=== PATIENT | female | born 1990 | race African-American/Black ===

== ENCOUNTER 2017-06-17 16:54 | Day surgery (SDC) | payer MEDICAID, OTHER ==
[2017-06-17 17:48] VITALS: BMI 24.0
[2017-06-17 19:19] LABS: Bilirubin Negative (Negative); Blood, Urine Negative (Negative); Glucose, Urine (Dipstick) Negative (Negative); Ketone, Urine 15 mg/dL (Negative); Nitrite Negative (Negative); Protein, Urine (Dipstick) Negative (Neg-Trace); Urobilinogen 0.2 mg/dL (0.2-1.0)
[2017-06-17 19:21] LABS: Bacteria/HPF None Seen HPF (None Seen); Hyaline Casts/LPF 0-3 HYALINE CAST LPF (0-3 Hyaline); RBC/HPF None Seen HPF (0-3); Squamous Epithelial 0-3 HPF (0-3); WBC/HPF 0-3 HPF (0-3)
--- NOTE | 2017-06-17 19:23 | PDOC.LDHP ---
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 Describes the amount as specks and denies clots. She denies abdominal pain, intercourse, and painful contractions. Denies dysuria, urinary frequency, changes in urine color, fever, chills, cp, sob, abdominal pain. Of note pt was also late to care. Current gestational age (weeks): 35 Due date: 07/20/17 Grav: 1 Para: 0 OB History Details: HPV Current complications: none Abnormal US findings: No (placenta anterofundal, no evidence of previa) Current medications: pre-chantel vitamins Previous surgical history: none - Physical Exam Vital signs reviewed and normal: yes General: NAD, resting Heart: RRR Lungs: nonlabored breathing Abdomen: gravid Extremeties: trace edema FHT: category 1, variability present [place] contractions every: absent - OB Labs Additional Labs: Late to care, no existing labs - Assessment HPV anogenital Vaginal bleeding in - Plan -: bleeding possibly 2/2 friable anogenital warts, no evidence of active bleeding and no previa evident on us will check vp3 and ua cat 1 strip, 140s bl, + accels, no decels VSS, no contractions on monitor no evidence of labor will obs and await urine and vp3 studies <Ben Sevilla - Last Filed: 06/17/17 19:19> <Ira Perez - Last Filed: 06/17/17 23:15> Allergies/Adverse Reactions: Allergies Allergy/AdvReac Type Severity Reaction Status Date / Time No Known Allergies Allergy Unverified 06/17/17 17:40 Attending Addendum - Attending Addendum I personally evaluated the patient and discussed the management with Dr. Sevilla on 06/17/17. I agree with the History, Examination, Assessment and Plan documented above with any addition or exceptions noted below. Patient is a 26 you at 35 wks with hx of significant genital warts that will require a primary LTCS at 39 wks. She presents with a small amount of vaginal bleeding after urinating. UA was unremarkable for a clean catch, is being sent for urine culture. VP3 shows BV and vaginal candidiasis, will discharge home with prescription for both. <Ira Perez - Last Filed: 06/17/17 23:15>
== END 2017-06-17 20:30 | disposition home or self-care (01) ==
LOC: ERS 16:54 → L&D/OP 16:54
PROVIDERS: ATTEND Student in an Organized Health Care Education/Training Program
DX: O26.853 Spotting complicating pregnancy, third trimester (principal); O98.313 Other infections with a predominantly sexual mode of transmission complicating pregnancy, third trimester; Z3A.35 35 weeks gestation of pregnancy; Z79.899 Other long term (current) drug therapy
CPT/HCPCS: 76815; 81003; 81015; 87480; 87510; 87660; A4353

== ENCOUNTER 2017-07-22 06:15 | Inpatient (IN) | payer OTHER ==
[2017-07-22] MEDS ORDERED: CEFAZOLIN/Water 2 GM/20 ML SYRINGE SLOW IVP SCH (06:21)
[2017-07-22] MEDS ORDERED: Bicitra 30 ML UDCUP PO SCH (06:21)
[2017-07-22] MEDS ORDERED: Promethazine HCl 25 MG/ML VIAL IM PRN ×2 (06:21→07:24)
[2017-07-22] MEDS ORDERED: Ondansetron HCl/PF 4 MG/2 ML Vial IVP PRN ×2 (06:21→07:24)
[2017-07-22 06:40] VITALS: BMI 25.0
[2017-07-22] MEDS ORDERED: Fentanyl 100 MCG/2 ML VIAL ONE (06:40)
[2017-07-22] MEDS ORDERED: Famotidine/PF 20 mg/2ml Vial ONE (06:41)
[2017-07-22] MEDS ORDERED: Morphine PF 1 MG/ML SYR ONE (06:41)
[2017-07-22 06:48] LABS: Hematocrit 41.2 % (36.0-47.0); Mean Platelet Volume 6.3 fL (7.4-10.4); Red Blood Cell (RBC) Count 4.14 mill/uL (4.20-5.40); White Blood Cell (WBC) Count 13.9 thou/uL (4.8-10.8)
[2017-07-22] MEDS ORDERED: ePHEDrine/0.9% NaCl/PF SYRINGE 50 mg/10 ml ONE ×2 (06:48→15:20)
[2017-07-22] MEDS ORDERED: PHENYLEPHRINE-NS 100 MCG/ML 10 ML SYRINGE ONE ×2 (06:48→15:20)
[2017-07-22] MEDS ORDERED: Oxytocin 10 UNITS/ML VIAL ONE (06:49)
[2017-07-22] MEDS: Lactated Ringer's 1,000 ML IV SCH ×2 (07:05→22:18)
--- NOTE | 2017-07-22 07:22 | PDOC.LDHP ---
Labor and Delivery H&P Chief complaint: scheduled section HPI: 26 yo G1 at 39+1 by 30 wk US by unknown LMP presents for scheduled C section for obstructive condyloma. She has not had bleeding, ctx, or discharge. She has had normal movement. Dating criteria: other (30 week US) Current complications: other (Obstructive condyloma) Abnormal US findings: No (previous anterior placenta, but now moved more L fundal. ) Current medications: pre- vitamins Previous surgical history: none Social history: none - Physical Exam Vital signs reviewed and normal: yes General: NAD, resting Heart: RRR Lungs: nonlabored breathing Abdomen: gravid Extremeties: no edema FHT: category 1, variability present [place] contractions every: none - OB Labs Blood type: O RH: positive Antibody Screen: negative HIV: negative RPR: negative HEPSAg: negative 1 hour GCT: negative GBS: negative Urine drug screen: not done Rubella: immune - Assessment L&D Assessment: scheduled primary section 1. 26 yo G1 at 39+1 with ALBERT of 07/28/17 based on 30 wk US. in consultation at clinic with Dr. Magana at [facility] we are doing an primary LTCS for increased risk of bleeding, obstruction and HPV exposure to fetus by vaginal . 2. 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 See plan above. will follow up outpatient with [facility] for further treatment. - Plan Plan: to OR for section <Raj Cardenas - Last Filed: 07/22/17 07:29> <Wilmar See - Last Filed: 07/22/17 15:47> Allergies/Adverse Reactions: Allergies Allergy/AdvReac Type Severity Reaction Status Date / Time No Known Allergies Allergy Verified 07/22/17 06:31 Attending Addendum - Attending Addendum I personally evaluated the patient and discussed the management with Dr. Cardenas. I agree with the History, Examination, Assessment and Plan documented above with any addition or exceptions noted below. 26 y.o. EDC 07/28/17, at 39.1 weeks EGA for Primary Csxn due to Obstructive Condyloma Accuminata. <Wilmar See - Last Filed: 07/22/17 15:47>
[2017-07-22] MEDS ORDERED: Naloxone HCl 0.4 mg/ml Vial IVP PRN ×2 (07:24)
[2017-07-22] MEDS ORDERED: diphenhydrAMINE 50 MG/ML VIAL IVP PRN (07:24)
[2017-07-22] MEDS ORDERED: Eucerin (Mineral Oil/Petrolatum,White) 30 gm Jar TOP PRN (07:24)
[2017-07-22] MEDS ORDERED: Naloxone HCl 0.4 mg/ml Vial IV PRN ×2 (07:24→14:00)
[2017-07-22] MEDS ORDERED: Ketorolac Tromethamine 30 MG/ML VIAL IVP PRN ×2 (07:24→14:00)
[2017-07-22] MEDS ORDERED: Promethazine HCl 25 MG SUPP PR PRN (07:24)
[2017-07-22] MEDS ORDERED: Communication Order-Pharmacy FS SCH (07:30)
[2017-07-22] MEDS ORDERED: Ketorolac Tromethamine 30 MG/ML VIAL ONE ×2 (09:03→15:20)
--- NOTE | 2017-07-22 09:06 | PDOC.OPDEL ---
OB Operative/Delivery Note Delivery Dr/Surgeon: Cristiana June. Attending: Dr. See Assist: Matteo Diaz Pre-Delivery Diagnosis: scheduled section Procedure/Post Delivery Dx: primary low transverse CS Weeks gestation: 39 Anesthesia: spinal - Findings A Sex: female - 1 min: 8 - 5 min: 9 - Additional Findings/Plan Placenta delivered: manual removal findings: low transverse hysterotomy without extension, normal uterus, normal tubes, normal ovaries Estimated blood loss: 600 Compilations/Other Findings: none Post delivery plan: routine recovery <Raj Cardenas - Last Filed: 07/22/17 09:05> Procedure - Procedure and Findings -: I certify I was present for, participated in and supervised the entire Section delivery documented above and agree with the documentation by Dr. Cardenas. <Wilmar See - Last Filed: 07/22/17 16:01>
--- NOTE | 2017-07-22 11:11 | DN-2 ---
DATE OF PROCEDURE: 07/22/2017 RESIDENT SURGEON: Dr. Alberto Cardenas, Dr. Díaz. DIAMOND GRADER SURGEON: Dr. Holden Diaz. ATTENDING SURGEON: Dr. Wilmar See. PROCEDURE: Primary low transverse section. PREOPERATIVE DIAGNOSES: 1. Term intrauterine . 2. Obstructive condyloma. 3. Late care. POSTOPERATIVE DIAGNOSES: 1. Term intrauterine . 2. Obstructive condyloma. 3. Late care. 4. Term female delivered. ANESTHESIA: Spinal. INDICATIONS: This patient is a 26-year-old G1, P0 at 39 weeks 1 day by 30-week ultrasound with pregn van complicated by obstructive condyloma. With consultation with Dr. Magana at the Clinic , recommendation was for primary low transverse section because of the massive obstructive c ondyloma on the cervix and vaginal canal. PROCEDURE IN DETAIL: After risks, benefits, and alternatives were explained to the patient, she gave the informed consent. Preoperative antibiotics included 2 grams of cefazolin IV. The patient was t aken to the operating room, and spinal anesthesia was initiated. She was placed in the supine positi on with left tilt and prepped and draped in usual sterile fashion. Pfannenstiel incision was made wi th a scalpel and carried down to the level of fascia, which was sharply nicked. The fascial cut was extended bilaterally with De La Cruz scissors. Inferior and superior edges of the cut fascial edges were e levated with Karin clamps, and underlying rectus muscles were sharply and bluntly dissected free. T he recti were divided digitally and retracted manually. The peritoneum was entered bluntly and retra cted manually. Bladder blade was placed. Bladder flap was created with Metzenbaum scissors. A low transverse score was made with scalpel, and the uterus was entered in the midline with the scalpel. Clear fluid was seen after membranes were ruptured with Allis clamp. The hysterotomy was extended ma nually. The infant was noted to be in vertex and was easily delivered by fundal pressure. Mouth and nares were bulb suctioned. Cord clamped and cut, and grossly normal female was handed to alexus iting nurse. Cord blood was obtained. Placenta was manually extracted and found to be intact with 3 -vessel cord and discarded. Uterus was externalized. Endometrium was curetted with a dry lap. Blad charlotte blade was replaced, and the uterus was closed with a running locking #1 Monocryl followed by a ru nning nonlocking #0 chromic imbricating suture. Following this, hemostasis was noted. The abdomen w as irrigated with saline and suctioned free of clots. Uterus was internalized, and hysterotomy was a gain noted to be hemostatic. The peritoneum was closed with 3-0 chromic. Fascia was closed with run bunny nonlocking 0 Vicryl suture. Subcutaneous tissue was irrigated, and there were no bleeders. Ski n was approximated with gama, and pressure dressing was placed. All counts were correct. The pat ient tolerated the procedure well and was taken to recovery room in stable condition. ESTIMATED BLOOD LOSS: 600 mL. COMPLICATIONS: None. SPECIMENS: Cord blood sent to lab for blood type. FINDINGS: Grossly normal female with Apgars of 8 and 9. Grossly normal placenta with three-v essel cord discarded. Godfrey to gravity draining clear urine.
[2017-07-22] MEDS ORDERED: HYDROcodone/Acetaminophen 5/325 mg Tablet PO PRN (11:39)
[2017-07-22] MEDS ORDERED: Lanolin Ointment 7 GM TUBE TOP PRN (11:39)
[2017-07-22] MEDS ORDERED: Adacel (T-DAP) 0.5 ML VIAL IM ONE (11:39)
[2017-07-22] MEDS ORDERED: diphenhydrAMINE 25 MG CAP PO PRN (11:39)
[2017-07-22] MEDS ORDERED: Bisacodyl 10 MG SUPP PR PRN (11:39)
[2017-07-22] MEDS ORDERED: Ibuprofen 800 MG TAB PO SCH (14:00)
[2017-07-22] MEDS ORDERED: Ondansetron HCl/PF 4 MG/2 ML Vial SLOW IVP PRN (14:01)
[2017-07-23 05:12] LABS: Hematocrit 37.3 % (36.0-47.0); Mean Platelet Volume 6.4 fL (7.4-10.4); Red Blood Cell (RBC) Count 3.72 mill/uL (4.20-5.40); White Blood Cell (WBC) Count 14.3 thou/uL (4.8-10.8)
--- NOTE | 2017-07-23 06:47 | PDOC.PP ---
Post Progress Note Post Day #: 1 Subjective: Pt feels well today and states that her pain is well controlled. She has not been ambulating dt continued paresthesia in her LE. She is bleeding less than a period, denies fever, has been able to urinate, has no flatus, has not had a BM , and is working to establish breast feeding. She does not plan on any contraception post PO intake tolerated: yes Flatus: no Ambulation: no Vital Signs (12 hours) Temp Pulse Resp BP Pulse Ox 07/23/17 04:15 97.9 F 71 18 112/56 L 07/23/17 02:00 18 07/23/17 00:00 98.3 F 71 18 117/74 07/22/17 22:00 18 07/22/17 20:00 98.0 F 72 20 107/69 99 Weight Weight 66.224 kg - Physical Examination General: NAD Cardiovascular: no m/r/g, RRR Respiratory: clear to auscultation bilaterally Abdominal: + bowel sounds, lochia, no distention, appropriately TTP Fundus firm & at: u -3 Extremities: negative homans (B) Skin: CS incision dry & intact Neurological: no gross focal deficits Psychiatric: A&Ox3, normal affect Result Diagrams: 07/23/17 04:48 Additional Labs: Post Labs Blood Type O POSITIVE 07/22/17 06:37 Hep Bs Antigen Non-Reactive S/CO (NonReactive) 07/22/17 06:37 (1) Postcesarean section Code(s): Z98.891 - HISTORY OF UTERINE SCAR FROM PREVIOUS SURGERY Status: Acute Comment: -Pt is doing well post op. -Discussed the need for ambulation, will work on walking with assistance today. -H&H is stable this morning -will consult consulatant per mother's request -discussed risks and benefits of post contraception. Pt will consider her options -continue routine post csection care <Holden Diaz - Last Filed: 07/23/17 06:45> Vital Signs (12 hours) Temp Pulse Resp BP 07/23/17 12:14 98.7 F 78 16 104/66 07/23/17 11:13 98.2 F 83 18 07/23/17 07:40 98.2 F 83 18 07/23/17 06:00 18 Weight Weight 66.224 kg Result Diagrams: 07/23/17 04:48 Additional Labs: Post Labs Blood Type O POSITIVE 07/22/17 06:37 Hep Bs Antigen Non-Reactive S/CO (NonReactive) 07/22/17 06:37 <Wilmar See - Last Filed: 07/23/17 16:36> Attending Addendum - Attending Addendum I personally evaluated the patient and discussed the management with Dr. Diaz I agree with the History, Examination, Assessment and Plan documented above with any addition or exceptions noted below. Pain controlled. Tal's po. Afebrile. Incision C/D/I. Continue routine Postop Care. <Wilmar See - Last Filed: 07/23/17 16:36>
[2017-07-23] MEDS: Docusate 100 MG CAP PO SCH ×2 (12:11→21:19)
[2017-07-23] MEDS: Prenatal Vitamin 1 TAB PO SCH (12:12)
[2017-07-23] MEDS: Ibuprofen 800 MG TAB PO SCH ×2 (14:38→21:18)
[2017-07-23] MEDS: HYDROcodone/Acetaminophen 5/325 mg Tablet PO PRN (15:19)
[2017-07-24] MEDS: HYDROcodone/Acetaminophen 5/325 mg Tablet PO PRN (03:05)
[2017-07-24] MEDS: Ibuprofen 800 MG TAB PO SCH ×2 (05:42→14:00)
--- NOTE | 2017-07-24 07:00 | PDOC.PP ---
Post Progress Note Post Day #: 2 Subjective: Pt is feeling well today. States that pain is controlled and that she is able to walk around without issue. She is voiding, however has no flatus and has not had a BM. She states that her bleeding is less than 1 pad/per hour and denies any passage of clots. Breast feeding is going well especially after consultation. PO intake tolerated: yes Flatus: no Ambulation: yes Vital Signs (12 hours) Temp Pulse Resp BP BP 07/24/17 00:00 98.2 F 81 18 105/61 07/23/17 20:00 98.1 F 70 18 117/77 Weight Weight 66.224 kg - Physical Examination General: NAD Cardiovascular: RRR Deviation from normal: systolic murmer w/split s2 Abdominal: + bowel sounds, lochia (scant), no distention, appropriately TTP Fundus firm & at: u -4 Extremities: negative homans (B) Skin: CS incision dry & intact Neurological: no gross focal deficits Psychiatric: A&Ox3, normal affect Result Diagrams: 07/23/17 04:48 Additional Labs: Post Labs Blood Type O POSITIVE 07/22/17 06:37 Hep Bs Antigen Non-Reactive S/CO (NonReactive) 07/22/17 06:37 (1) Postcesarean section Code(s): Z98.891 - HISTORY OF UTERINE SCAR FROM PREVIOUS SURGERY Status: Acute Comment: -Pt is doing well post op. -discussed risks and benefits of post contraception. Pt will consider her options -continue routine post csection care -will give laxatives today PRN for BM. -ready for dc once she begans to have flatus/bm <Holden Diaz - Last Filed: 07/24/17 07:01> Weight Weight 66.224 kg Result Diagrams: 07/23/17 04:48 Additional Labs: Post Labs Blood Type O POSITIVE 07/22/17 06:37 Hep Bs Antigen Non-Reactive S/CO (NonReactive) 07/22/17 06:37 <Wilmar See - Last Filed: 07/25/17 23:34> Attending Addendum - Attending Addendum I personally evaluated the patient and discussed the management with Dr. Diaz on 07/24/17. I agree with the History, Examination, Assessment and Plan documented above with any addition or exceptions noted below. Pain controlled. + Flatus. Vitals normal. Afeb. Incision C/D/I. Remove gama, place steri-strips. Stable for d/c home. <Wilmar See - Last Filed: 07/25/17 23:34>
[2017-07-24] MEDS ORDERED: Bisacodyl 5 MG TAB PO SCH (07:15)
[2017-07-24 08:18] VITALS: BP 106/69; TEMP 98.1
[2017-07-24] MEDS: Prenatal Vitamin 1 TAB PO SCH (08:44)
[2017-07-24] MEDS: Docusate 100 MG CAP PO SCH (08:44)
[2017-07-27] MEDS ORDERED: Ibuprofen 800 MG TAB PO SCH (22:00)
== END 2017-07-24 14:12 | disposition home or self-care (01) | DRG 766 ==
LOC: L&D 06:15 → 3SW 11:35
PROVIDERS: ADMIT Family Medicine; ATTEND Family Medicine
PROC: 10D00Z1 Extraction of Products of Conception, Low, Open Approach (ICD-10-PCS; principal; 2017-07-22)
PROC: 4A0HXCZ Measurement of Products of Conception, Cardiac Rate, External Approach (ICD-10-PCS; 2017-07-22)
DX: O98.32 Other infections with a predominantly sexual mode of transmission complicating childbirth (principal); A63.0 Anogenital (venereal) warts; Z37.0 Single live birth; Z3A.39 39 weeks gestation of pregnancy
CPT/HCPCS: 36415; 85027; 86780; 86850; 86900; 86901; 87340; J1885; J2274; J2590; J3010; S0028

== ENCOUNTER 2019-11-10 07:49 | Emergency (ER) | payer OTHER ==
[2019-11-10] MEDS ORDERED: Ondansetron ODT 4 MG TAB ONE (08:34)
== END 2019-11-10 09:09 | disposition home or self-care (01) ==
LOC: ERS 07:49
DX: R11.10 Vomiting, unspecified (principal)
CPT/HCPCS: 99283; Q0162

== ENCOUNTER 2019-12-13 19:53 | Emergency (ER) | payer OTHER, SELFPAY ==
[2019-12-13 20:32] LABS: Pregnancy Test - Urine (BHCG) POSITIVE (Negative); Pregu Control Background? CLEAR/WHITE (CLR/WHITE); Pregu Control Bar Appear? YES (CONTROL BAR)
[2019-12-13 20:37] LABS: Bacteria/HPF None Seen HPF (None Seen); Bilirubin Negative (Negative); Blood, Urine Negative (Negative); Clarity Clear (Clear); Glucose, Urine (Dipstick) Normal (Negative); Leukocyte 25 Leu/uL (Negative); Nitrite Negative (Negative); Protein, Urine (Dipstick) 10 mg/dL (Neg-Trace); RBC/HPF 0-3 HPF (0-3); Squamous Epithelial 0-3 HPF (0-3); Urobilinogen Normal mg/dL (Less than 2); WBC/HPF 0-3 HPF (0-3)
[2019-12-13 20:39] LABS: Specific Gravity 1.035 (1.002-1.036)
== END 2019-12-13 20:59 | disposition home or self-care (01) ==
LOC: ERS 19:53
DX: O99.89 Other specified diseases and conditions complicating pregnancy, childbirth and the puerperium (principal); R11.0 Nausea; R10.30 Lower abdominal pain, unspecified
CPT/HCPCS: 81003; 81015; 81025; 99284

== ENCOUNTER 2019-12-30 01:26 | Emergency (ER) | payer BC ==
[2019-12-30 01:50] LABS: Bilirubin Negative (Negative); Blood, Urine Negative (Negative); Glucose, Urine (Dipstick) Negative (Negative); Leukocyte Trace (Negative); Nitrite Negative (Negative); Protein, Urine (Dipstick) Negative (Neg-Trace); Urobilinogen 0.2 mg/dL (Less than 2)
[2019-12-30 01:51] LABS: #Basophils 0.1 thou/uL (0.0-0.2); #Eosinphils 0.2 thou/uL (0.0-0.7); #Lymphocytes 2.2 thou/uL (1.20-3.40); #Monocytes 0.6 thou/uL (0.11-0.59); #Neutrophils 7.8 thou/uL (1.40-6.50); %Basophils 0.8 % (0.0-1.0); %Eosinophils 1.9 % (0.0-10.0); %Lymphocytes 20.1 % (21.0-51.0); %Monocytes 5.2 % (0.0-10.0); %Neutrophils 71.9 % (42.0-75.0); Hemoglobin 12.9 g/dL (12.0-16.0); Mean Corpuscular HGB CONC 32.8 g/dL (32.0-36.0); Mean Corpuscular Hemoglobin 31.1 pg (27.0-31.0); Mean Corpuscular Volume 94.7 fL (78.0-98.0); Mean Platelet Volume 6.9 fL (7.4-10.4); Platelet Count 292 thou/uL (130-400); RBC Distribution Width 12.2 % (11.5-14.5); Red Blood Cell (RBC) Count 4.14 mill/uL (4.20-5.40); White Blood Cell (WBC) Count 10.8 thou/uL (4.8-10.8)
[2019-12-30 01:55] LABS: Bacteria/HPF None Seen HPF (None Seen); Mucous/LPF 1+ LPF (<2+); RBC/HPF 0-3 HPF (0-3)
[2019-12-30 01:56] LABS: Clarity Clear (Clear)
[2019-12-30 02:01] LABS: BHCG - Serum POSITIVE (NEGATIVE); Pregs Control Background? CLEAR/WHITE (CLR/WHITE); Pregs Control Bar Appear? YES (CONTROL BAR)
[2019-12-30 02:11] LABS: ALT (SGPT) 10 U/L (8-55); AST (SGOT) 13 U/L (5-34); Albumin 4.4 g/dL (3.5-5.0); Alkaline Phosphatase 42 U/L (40-110); Anion Gap 13 mmol/L (10-20); BUN (Urea Nitrogen) 8 mg/dL (7.0-18.7); Bilirubin, Total 1.3 mg/dL (0.2-1.2); Calc. Creatinine Clearance 0 mL/min (70-130); Calcium 8.9 mg/dL (7.8-10.44); Carbon Dioxide 22 mmol/L (22-29); Chloride 104 mmol/L (98-107); Estimated GFR-MDRD Greater than 90; Globulin 2.6 g/dL (2.4-3.5); Glucose 80 mg/dL (70-105); Potassium 4.1 mmol/L (3.5-5.1); Sodium 135 mmol/L (136-145)
[2019-12-30] MEDS ORDERED: Acetaminophen 500 MG TAB ONE (02:30)
== END 2019-12-30 02:35 | disposition home or self-care (01) ==
LOC: ERS 01:26
DX: O99.89 Other specified diseases and conditions complicating pregnancy, childbirth and the puerperium (principal); R10.30 Lower abdominal pain, unspecified; Z3A.01 Less than 8 weeks gestation of pregnancy
CPT/HCPCS: 36415; 80053; 81003; 81015; 84702; 84703; 85025; 99284

== ENCOUNTER 2020-03-01 20:25 | Emergency (ER) | payer BC ==
[2020-03-01 21:25] LABS: #Eosinphils 0.2 thou/uL (0.0-0.7); #Monocytes 0.5 thou/uL (0.11-0.59); #Neutrophils 7.4 thou/uL (1.40-6.50); %Basophils 0.4 % (0.0-1.0); %Eosinophils 2.4 % (0.0-10.0); %Monocytes 4.5 % (0.0-10.0); %Neutrophils 72.6 % (42.0-75.0); Hemoglobin 12.5 g/dL (12.0-16.0); Mean Corpuscular HGB CONC 34.6 g/dL (32.0-36.0); Mean Corpuscular Volume 92.6 fL (78.0-98.0); Mean Platelet Volume 7.1 fL (7.4-10.4); Platelet Count 240 thou/uL (130-400); RBC Distribution Width 12.1 % (11.5-14.5); Red Blood Cell (RBC) Count 3.91 mill/uL (4.20-5.40); White Blood Cell (WBC) Count 10.2 thou/uL (4.8-10.8)
--- NOTE | 2020-03-01 21:37 | ULT ---
Obstetrical Ultrasound INDICATION: Pelvic cramping, pelvic pain and no history of vaginal bleeding TECHNIQUE: Grayscale, M-mode Doppler, color Doppler and spectral Doppler images were obtained. Michael sprague is focused on the clinical indication. COMPARISON: No relevant prior studies available. FINDINGS: GESTATION: Number of gestations: Single. Presentation: Cephalic. heart rate: 141 bpm. Placental location: Anterior Previa: No evidence for previa. Cervical length: 4.5 cm without evidence of funneling. ERNESTINE: Qualitatively appear within normal limits. LIMITED SURVEY: No abnormality as visualized. BIOMETRY: Biparietal diameter: 4.24cm, 18 weeks and 6 days, 95th percentile. Head circumference: 15.02 cm, 19 weeks and 1 day, 75th percentile Abdominal circumference: 12.96 cm, 18 weeks and 4 days, 82nd percentile Femoral length: 2.62cm, 18 weeks and 0 days, 66 percentile Estimated weight: 231 g +/- 34g 0 lbs. 8 oz. +/- 1 ounce, 90th percentile The average gestational age by ultrasound is 18 weeks and 3 dayswith estimated due date of July. The estimated dates by clinical data is 17 weeks and 3 dayswith estimated due date of August 06. IMPRESSION: 1. Single live intrauterine gestation with size and dates as above.
[2020-03-01 21:53] LABS: Bilirubin Negative (Negative); Blood, Urine Negative (Negative); Clarity Turbid (Clear); Glucose, Urine (Dipstick) Normal (Negative); Ketone, Urine 10 mg/dL (Negative); Leukocyte 500 Leu/uL (Negative); Nitrite Negative (Negative); Protein, Urine (Dipstick) 30 mg/dL (Neg-Trace); Specific Gravity, Urine 1.037 (1.002-1.036); Urobilinogen Normal mg/dL (Less than 2)
[2020-03-01 21:58] LABS: Bacteria/HPF 3+ HPF (None Seen)
[2020-03-01 21:59] LABS: Mucous/LPF 2+ LPF (<2+)
[2020-03-01] MEDS ORDERED: Nitrofurantoin Monohyd/M-Cryst 100 MG CAP PO SCH (22:15)
== END 2020-03-01 22:29 | disposition home or self-care (01) ==
LOC: ERS 20:25
DX: O99.89 Other specified diseases and conditions complicating pregnancy, childbirth and the puerperium (principal); R10.9 Unspecified abdominal pain; Z3A.16 16 weeks gestation of pregnancy
CPT/HCPCS: 36415; 76815; 81003; 81015; 84702; 85025; 86900; 86901; 87086

== ENCOUNTER 2020-07-31 10:41 | Outpatient (CLI) | payer BC ==
[2020-07-31 21:57] LABS: SARS-CoV-2 MS2 Positive; SARS-CoV-2 N Gene Negative; SARS-CoV-2 S Gene Negative; SARS-CoV-2 by NAA Not Detected (NotDetected); SARS-CoV-2 orf1ab Negative
== END 2020-07-31 10:42 | disposition home or self-care (01) ==
LOC: LABBT 10:41
PROVIDERS: ATTEND Family Medicine
DX: Z01.812 Encounter for preprocedural laboratory examination (principal); Z20.828 Contact with and (suspected) exposure to other viral communicable diseases
CPT/HCPCS: 87635; U0003

== ENCOUNTER 2020-08-03 06:48 | Inpatient (IN) | payer BC ==
[2020-08-03] MEDS ORDERED: Oxytocin 10 UNITS/ML VIAL ONE (07:03)
[2020-08-03] MEDS ORDERED: Morphine PF 10 MG/10 ML VIAL ONE (07:03)
[2020-08-03] MEDS ORDERED: Dexmedetomidine 200 MCG/2 ML VIAL ONE (07:12)
[2020-08-03] MEDS ORDERED: Famotidine/PF 20 mg/2ml Vial ONE (07:12)
[2020-08-03] MEDS ORDERED: Famotidine/PF 20 mg/2ml Vial SLOW IVP PRN (07:18)
[2020-08-03] MEDS ORDERED: hydrALAZINE 20 MG/ML VIAL SLOW IVP PRN ×2 (07:18→12:23)
[2020-08-03] MEDS ORDERED: Promethazine HCl 25 MG/ML VIAL IM PRN ×2 (07:18→09:26)
[2020-08-03] MEDS ORDERED: Ondansetron PF 4 MG/2 ML Vial IVP PRN ×3 (07:18→12:23)
[2020-08-03] MEDS ORDERED: Bicitra 30 ML UDCUP PO PRN (07:18)
[2020-08-03] MEDS: Lactated Ringer's 1,000 ML IV SCH ×3 (07:21→16:53)
--- NOTE | 2020-08-03 07:27 | PDOC.FPROB ---
FMR OB H&P: HPI - History of Present Illness Chief Complaint: rLTCS Indentification: 29yo @ 39.4 by LMP/7.3wk sono History of Present Illness: 29yo @ 39.4 by LMP/7.3wk sono presents for scheduled rLTCS. After R/B/A, patient decided to proceed with rLTCS at prior clinic visits as opposed to TOLAC. Patient has no concerns. Endorses good movement. Denies ctx, LOF, vaginal bleeding/discharge. No edema, vision changes, SOB, CP, RUQ pain, QUEEN. Primary Care Physician: BEHZAD Mathews/Windy FMR OB H&P: Current - Care : 2 Para: 1001 Gestational age: 39.4 Due date: 08/06/20 Dating Criteria: LMP/7.3wk - OB Labs Blood type: O RH: positive Antibody Screen: negative HIV: negative RPR: negative HepBsAg: negative Rubella: immune Gonorrhea: negative Chlamydia: negative GBS: negative FMR OB H&P: History - Past Medical History PMH: Scabies this s/p tx. - OB History OB History: Prior LTCS for obstructing condyloma - ANALYTICS LEAD History ANALYTICS LEAD History: H/o trich this s/p tx. H/o Anogenital warts, none this . - Surgical History Sx History: LTCS - Social History Social History: Denies tob, etoh, illicits. Works at [employer]. - Family History Family History: Denies FMR OB H&P: Medications - Current Home Medications: Medication Instructions Recorded Confirmed Type Pnv72/Iron,Gluc/Folic/Dss/Dha 1 tab PO DAILY 06/17/17 07/22/17 History [Citranatal 90 DHA Combo Pack] Allergies/Adverse Reactions: Allergies Allergy/AdvReac Type Severity Reaction Status Date / Time No Known Allergies Allergy Verified 07/22/17 06:31 FMR OB H&P: ROS - Review of Systems General: denies: fever/chills, weight/appetite/sleep changes, night sweats Eyes: denies: vision changes, double vision, scotomas ENT: denies: nasal congestion, rhinorrhea Cardiovascular: denies: chest pain, palpitation Respiratory: denies: cough, congestion, shortness of breath Gastrointestinal: denies: abdominal pain, indigestion, nausea, vomiting Genitourinary (Female): denies: dysuria, hematuria, vaginal discharge, vaginal bleeding, contractions Neurologic: denies: numbness, syncope Integumentary: denies: rash FMR OB H&P: Vital Signs - Maternal Vital signs: BP 102/65, HR 74, RR 12, weight 73kg, 99% on RA - Heart Tones Baseline: 120 Variability: moderate Acceleration: present Deceleration: absent Category: category 1 Peak contractions every: few FMR OB H&P: Physical Exam - Physical Exam General: NAD, awake, alert and oriented HEENT: PERRLA, EOMI, MMM, conjunctiva clear Neck: supple, trachea midline Heart: RRR, normal S1/S2, no murmurs/rubs/gallops, pulses present, no edema General: CTAB, no respiratory distress, good air movement, no rales/rhonchi, no wheezing Abdomen: soft, gravid, non-tender, bowel sound present Musculoskeletal: normal gait and station Neurological: no focal deficit Psychiatric: intact recent and remote memory FMR OB H&P: A/P - Problem List (1) Third trimester Current Visit: Yes Status: Acute Code(s): Z34.93 - ENCNTR FOR SUPRVSN OF NORMAL PREG, UNSP, THIRD TRIMESTER Disposition: 29yo @ 39.4 by LMP/7.3wk sono presents for scheduled rLTCS #Term, SIUP - rLTCS after R/B/A discussed - prior LTCS for obstructing condyloma - Anterior Placenta, Cephalic - beside sono at admission - GBS negative #H/o Anogenital warts - prior , s/p removal - no lesions this #H/o Trich infection - s/p tx this PCP: [facility] - Reid/[facility]unn IVF: LR @ 125cc/hr VTE: SCDs Diet: NPO Dispo: Admit to L&D for rLTCS. Discussion: Date/Time: 08/03/20724 This H&P was discussed with Dr. See who agrees with the above documentation and plan.
[2020-08-03] MEDS ORDERED: CEFAZOLIN 2 GM in Premix Bag 1 BAG IVPB SCH (07:30)
[2020-08-03 07:44] VITALS: BMI 28.5
[2020-08-03 07:52] LABS: Hemoglobin 13.1 g/dL (12.0-16.0); Mean Corpuscular HGB CONC 34.7 g/dL (32.0-36.0); Mean Corpuscular Hemoglobin 33.1 pg (27.0-31.0); Mean Corpuscular Volume 95.5 fL (78.0-98.0); Mean Platelet Volume 7.4 fL (7.4-10.4); Platelet Count 172 thou/uL (130-400); RBC Distribution Width 12.5 % (11.5-14.5); Red Blood Cell (RBC) Count 3.95 mill/uL (4.20-5.40); White Blood Cell (WBC) Count 11.6 thou/uL (4.8-10.8)
[2020-08-03 08:42] LABS: HBSAg Index 0.21 S/CO (0-0.99); Hep B Surf Ag Non-Reactive S/CO (NonReactive); Syphilis Antibody Nonreactive (Nonreactive); Syphilis Antibody Index 0.08 S/CO (<1.00 Non-Reactive)
[2020-08-03] MEDS ORDERED: Naloxone HCl 0.4 mg/ml Vial IV PRN (09:26)
[2020-08-03] MEDS ORDERED: Naloxone HCl 0.4 mg/ml Vial IVP PRN ×2 (09:26)
[2020-08-03] MEDS ORDERED: Promethazine HCl 25 MG SUPP PR PRN (09:26)
[2020-08-03] MEDS ORDERED: HYDROmorphone 2 MG/ML VIAL SLOW IVP PRN (09:26)
[2020-08-03] MEDS ORDERED: L&D-Morphine 4 MG/ML VIAL SLOW IVP PRN (09:26)
[2020-08-03] MEDS ORDERED: Meperidine HCl/PF 25 MG/ML VIAL SLOW IVP PRN (09:26)
[2020-08-03] MEDS ORDERED: Ondansetron HCl/PF 4 MG/2 ML Vial IVP PRN (09:26)
[2020-08-03] MEDS ORDERED: diphenhydrAMINE 50 MG/ML VIAL IVP PRN (09:26)
[2020-08-03] MEDS ORDERED: Communication Order-Pharmacy FS SCH (09:30)
--- NOTE | 2020-08-03 11:32 | PDOC.OPDEL ---
OB Operative/Delivery Note - Additional Findings/Plan Compilations/Other Findings: Date of Procedure: 08/03/2020 Resident Surgeon: Dr. Paulino Tadeo and Dr. Trey Long Outside Contractor Sales Surgeon: Dr. Madisyn Peres Attending Surgeon: Dr. Wilmar See Procedure: Repeat low transverse caesarean section Preoperative Diagnosis: 1)Term intrauterine 2)Previous Postoperative Diagnosis: 1)same as above Anesthesia: spinal Indications: The patient is a 29 year old G2,P1 female at 39.4 weeks gestation who presents for a repeat scheduled . Procedure in Detail: After risks, benefits, and alternatives were explained to the patient, she gave informed consent. Pre-operative antibiotics included Cefazolin 2 gram IV. The patient was taken to the operating room and spinal anesthesia was initiated. She was placed in the supine position with a left tilt and prepped and draped in usual sterile fashion. A Pfannenstiel incision was made with a scalpel and carried down to the level of the fascia which was sharply nicked. The fascial cut was extended bilaterally with De La Cruz sissors. The inferior and superior edges of the cut fascial edges were elevated with Karin clamps and the underlying rectus muscles were sharply and bluntly dissected free. The recti were divided digitally and retracted manually. The peritoneum was entered bluntly and retracted manually. Bladder blade was placed. A low transverse score was made with the scalpel and the uterus was entered in the midline with the scalpel. Clear fluid was seen. The hysterotomy was extended manually. The was noted to be vertex and was easily delivered by fundal pressure. Mouth and nares were bulb suctioned. Cord clamped and cut and grossly normal male infant was handed to waiting nurse. Cord blood was obtained. Placenta was manually extracted, found to be intact with 3 vessel cord and discarded. The uterus was externalized and the endometrium was curetted with a dry lap. The bladder blade was replaced and the uterus was closed with a running locking 1-mono followed by a running non-locking #1 Chromic imbricating suture. Following this hemostasis was noted. The abdomen was inspected and suctioned free of clots. The uterus was internalized and the hysterotomy was again noted to be hemostatic. The fascia was closed with a running non-locking 0-PDS suture. The subcutaneous tissue was irrigated and small bleeders were stopped with electrocautery. The skin was approximated with 2-0 plain running sub-Q and a pressure dressing was placed. All counts were correct. The patient tolerated the procedure well and was taken to the recovery room in stable condition. Quantified Blood Loss: 490 ml Complications: None Specimens: Cord blood sent to lab for blood type Findings: Grossly normal male/female infant with Apgars of 7 and 9. Grossly normal placenta with 3 vessel cord discarded. Drains: Godfrey to gravity draining clear urine
[2020-08-03] MEDS ORDERED: Misoprostol 200 MCG TAB PR PRN (12:23)
[2020-08-03] MEDS ORDERED: Bisacodyl 10 MG SUPP PR PRN (12:23)
[2020-08-03] MEDS ORDERED: diphenhydrAMINE 25 MG CAP PO PRN (12:23)
[2020-08-03] MEDS ORDERED: Methylergonovine 0.2 MG/ML VIAL IM PRN (12:23)
[2020-08-03] MEDS ORDERED: Lanolin Ointment 7 GM TUBE TOP PRN (12:23)
[2020-08-03] MEDS ORDERED: Methylergonovine 0.2 MG TAB PO PRN (12:23)
--- NOTE | 2020-08-03 13:19 | PDOC.BPN ---
- Brief Progress Note Encounter Date: 08/03/20 Encounter Time: 13:15 4 Hour Post-op Note Patient is feeling well and overall has no complaints. Tolerating ice chips well, no nausea. She is hungry and desires to advance diet. Denies pain. Lower extremities are still numb. 200mL clear/yellow urine in sandoval bag. Gen: resting in bed, NAD Resp: normal effort Ab: soft, nontender, uterus firm Ext: SCDs in place Per nursing, passed some clots which has improved. Total QBL updated to 626mL. Continue routine care.
[2020-08-03] MEDS ORDERED: Ketorolac Tromethamine 30 MG/ML VIAL IVP PRN (17:00)
[2020-08-03] MEDS ORDERED: Ferrous Sulfate 325 MG TAB PO SCH (21:00)
[2020-08-04] MEDS: Simethicone Chewable 80 MG TAB PO PRN ×3 (01:14→11:17)
[2020-08-04] MEDS: HYDROcodone/Acetaminophen 5/325 mg Tablet PO PRN ×4 (04:41→22:52)
[2020-08-04 06:01] LABS: Hemoglobin 9.9 g/dL (12.0-16.0); Mean Corpuscular HGB CONC 33.1 g/dL (32.0-36.0); Mean Corpuscular Hemoglobin 31.8 pg (27.0-31.0); Mean Corpuscular Volume 96.2 fL (78.0-98.0); Mean Platelet Volume 6.9 fL (7.4-10.4); Platelet Count 189 thou/uL (130-400); RBC Distribution Width 12.4 % (11.5-14.5); Red Blood Cell (RBC) Count 3.11 mill/uL (4.20-5.40); White Blood Cell (WBC) Count 17.7 thou/uL (4.8-10.8)
[2020-08-04] MEDS: Docusate Calcium (SURFAK) 240 MG CAP PO SCH ×3 (06:26→21:17)
--- NOTE | 2020-08-04 07:51 | PDOC.PP ---
Post Progress Note Post Day #: 1 Subjective: Doing well this morning. going well. Tolerating PO without n/v. Denies fever/chills, CP, SOB. Abd pain well-controlled. Ambulating. Godfrey removed. No void yet, not passing gas yet. Lochia slightly more than period but decreased from initially. No concerns for this morning. PO intake tolerated: yes Flatus: no Ambulation: yes Vital Signs (12 hours) Temp Pulse Resp BP Pulse Ox 08/04/20 06:24 18 08/04/20 04:15 98.8 F 62 20 103/51 L 98 08/04/20 02:00 16 08/04/20 00:00 99.2 F 66 18 98/64 98 08/03/20 22:00 18 08/03/20 20:00 98.2 F 65 18 96/56 L 98 Weight Weight 73.028 kg - Physical Examination General: NAD (resting comfortably) Cardiovascular: no m/r/g, RRR Respiratory: clear to auscultation bilaterally, non-labored breathing Abdominal: + bowel sounds, no distention, appropriately TTP Fundus firm & at: umbilicus Extremities: negative homans (B) (no edema) Skin: CS incision dry & intact (dressing c/d/i) Psychiatric: A&Ox3, normal affect Result Diagrams: 08/04/20 05:44 Additional Labs: Post Labs Hep Bs Antigen Non-Reactive S/CO (NonReactive) 08/03/20 07:28 Blood Type O POSITIVE 08/03/20 07:28 (1) Postcesarean section Code(s): Z98.891 - HISTORY OF UTERINE SCAR FROM PREVIOUS SURGERY Status: Acute - Assessment/Plan 29yo ->2 s/p rLTCS @ 39.4 by LMP/7.3wk sono now POD #1 #s/p rLTCS - Doing well overall. Encourage breast feeding. - Ambulating, tolerating PO. Monitor for voids and flatus. Encourage ambulation. Pain control with motrin and norco prn. - Hb 13.1 -> 9.4, lochia decreasing, continue PO iron. - routine post-op care - Total QBL 969 #H/o Anogenital warts - prior , s/p removal - no lesions this #H/o Trich infection - s/p tx this PCP: BEHZAD Mathews/Windy IVF: SL VTE: SCDs Diet: Regular Dispo: Routine post c/s care. Anticipate discharge tomorrow vs Thursday pending clinical course. Addendum - Attending - Attending Attestation Date/Time: 08/04/20 3217 I personally evaluated the patient and discussed the management with Dr. Tadeo. I agree with the History, Examination, Assessment and Plan documented above with any addition or exceptions noted below.
[2020-08-04] MEDS ORDERED: Adacel (T-DAP) 0.5 ML SYRINGE IM ONE (09:00)
[2020-08-04] MEDS: Prenatal Vitamin 1 TAB PO SCH (09:46)
[2020-08-04] MEDS: Ferrous Sulfate 325 MG TAB PO SCH (09:46)
[2020-08-04] MEDS: Ibuprofen 800 MG TAB PO SCH (21:16)
[2020-08-05] MEDS: HYDROcodone/Acetaminophen 5/325 mg Tablet PO PRN ×2 (05:12→09:04)
[2020-08-05] MEDS: Ibuprofen 800 MG TAB PO SCH (05:13)
[2020-08-05] MEDS: Simethicone Chewable 80 MG TAB PO PRN (05:16)
--- NOTE | 2020-08-05 07:39 | PDOC.PP ---
Post Progress Note Post Day #: 2 Subjective: Doing well, no concerns for this morning. Eager for discharge home. going well. Lochia decreased. Ambulating. Tolerating PO without n/v. Flatus, voiding without difficulty. Pain well-controlled. No fever/chills, CP, SOB, vision changes. PO intake tolerated: yes Flatus: yes Ambulation: yes Vital Signs (12 hours) Temp Pulse Resp BP BP 08/05/20 05:10 98.1 F 80 16 123/58 L 08/04/20 23:37 97.8 F 78 16 122/61 08/04/20 20:42 97.8 F 74 16 110/58 L Weight Weight 73.028 kg - Physical Examination General: NAD (good spirits) Cardiovascular: no m/r/g, RRR Respiratory: clear to auscultation bilaterally Abdominal: + bowel sounds, lochia (decreased), no distention, appropriately TTP Fundus firm & at: below umbilicus Extremities: negative homans (B) (no edema) Skin: CS incision dry & intact Neurological: no gross focal deficits Psychiatric: A&Ox3, normal affect Result Diagrams: 08/04/20 05:44 Additional Labs: Post Labs Hep Bs Antigen Non-Reactive S/CO (NonReactive) 08/03/20 07:28 Blood Type O POSITIVE 08/03/20 07:28 (1) Postcesarean section Code(s): Z98.891 - HISTORY OF UTERINE SCAR FROM PREVIOUS SURGERY Status: Acute - Assessment/Plan 29yo ->2 s/p rLTCS @ 39.4 by LMP/7.3wk sono now POD #2 #s/p rLTCS - Doing well overall. Encouraged breast feeding. - Ambulating, tolerating PO. Voiding and flatus. VSS. Pain well-controlled with motrin and prn [place]. - Hb 13.1 -> 9.4, lochia decreasing, continue PO iron. - routine post-op care - Total QBL 969 - Anticipate discharge today. #H/o Anogenital warts - prior , s/p removal - no lesions this #H/o Trich infection - s/p tx this PCP: [facility] - [facility] IVF: SL VTE: SCDs Diet: Regular Dispo: Routine post c/s care. Anticipate discharge today. Addendum - Attending - Attending Attestation Date/Time: 08/05/20 0265 I personally evaluated the patient and discussed the management with Dr. Tadeo. I agree with the History, Examination, Assessment and Plan documented above with any addition or exceptions noted below.
[2020-08-05] MEDS: Ferrous Sulfate 325 MG TAB PO SCH (09:00)
[2020-08-05] MEDS: Docusate Calcium (SURFAK) 240 MG CAP PO SCH (09:00)
[2020-08-05] MEDS: Prenatal Vitamin 1 TAB PO SCH (09:00)
[2020-08-05 09:57] VITALS: BP 110/63; TEMP 97.6
--- NOTE | 2020-08-07 05:23 | PQF ---
CLINICAL DOCUMENTATION CLARIFICATION FORM: Dear : Elian Carrillo Date / Time: 08/07/20521 Please exercise your independent, professional judgment in responding to the clarification form. Clinical indicators are provided on the bottom of this form for your review Please check appropriate box(es): [ x] Associated Diagnosis: Acute blood loss anemia [ ] Abnormal laboratory findings not clinically significant [ ] Other diagnosis, please specify [ ] Unable to determine Physician Signature: Date/Time: For continuity of documentation, please document condition throughout progress notes and discharge summary. Thank You. To be completed by CDI/Coding staff for physician review: Present Clinical Indicators - Signs / Symptoms / Labs Results and Location in Medical Record [X] RBC 3.95, Hgb 13.1, Hct 37.7 Laboratory 08/03 [X] RBC 3.11, Hgb 9.9, Hct 29.9 Laboratory 08/04 [X] BP 104/59, Pulse 72, Resp 16, Temp 97.1 Vital signs 08/03 [X] EBL 350 ml Scanned Delivery note 07/26 Present Risk Factors Results and Location in Medical Record [X] 39 IUP L&D note 08/03 [X] Repeat CS L&D note 08/03 [X] S/p Low trasnverse CS L&D note 08/03 [X] Quantified blood loss 450 ml L&D note 08/03 Present Treatments Results and Location in Medical Record [X] Series of hct and hgb labs Laboratory 08/03 [X] Lactated Ringers 1L NOV 02 [X] Ferrous Sulfate 325 mg oral NOV 02 [facility]/[employer] Signature: Kathy Clark Phone #: [phone] Date/Time: 08/07/2020521 This is a permanent part of the Medical Record [facility]
== END 2020-08-05 10:53 | disposition home or self-care (01) | DRG 787 ==
LOC: L&D 06:48 → 3SW 12:42
PROVIDERS: ADMIT Family Medicine; ATTEND Family Medicine
PROC: 10D00Z1 Extraction of Products of Conception, Low, Open Approach (ICD-10-PCS; principal; 2020-08-03)
DX: O34.211 Maternal care for low transverse scar from previous cesarean delivery (principal); D62 Acute posthemorrhagic anemia; Z3A.39 39 weeks gestation of pregnancy; Z37.0 Single live birth; Z20.828 Contact with and (suspected) exposure to other viral communicable diseases; Z86.19 Personal history of other infectious and parasitic diseases; O90.81 Anemia of the puerperium
CPT/HCPCS: 36415; 51702; 85027; 86780; 86850; 86900; 86901; 87340; 87635; J0690; J1885; J2270; J2405; S0028; U0003

== ENCOUNTER 2022-10-22 11:22 | Emergency (ER) | payer MEDICAID | END 2022-10-22 12:56 | disposition home or self-care (01) | LOC: ERS 11:22 | DX: H10.9 Unspecified conjunctivitis (principal) | CPT/HCPCS: 99282 ==